=== PATIENT | male | born 1960 | race American Indian/Alaskan Native ===

== ENCOUNTER 2016-04-03 13:41 | Emergency (ER) | payer MEDICARE, OTHER ==
[2016-04-03] MEDS ORDERED: ASPIRIN PO ONE (14:10)
--- NOTE | 2016-04-03 14:17 | Emergency Department Report ---
Chief Complaint: Chest Pain Stated Complaint: SHARP PAIN LT ARM Time Seen by Provider: 04/03/16 14:15 - HPI History of Present Illness: 55 year old male with hx of CABG, CHF, HIV (compliant with meds), presents with left sided chest pain for about a day that is not associated with exertion. states pain comes and goes. denies fever, cough, sob. - Exam Vital Signs: Vital Signs 04/03/16 14:01 Temperature 97.6 F Pulse Rate 72 Respiratory 18 Rate Blood Pressure 124/81 O2 Sat by Pulse 98 Oximetry Physical Exam: patient appears in no distress VSS RRR, lungs CTA. MSE screening note: Focused history and physical exam performed. Due to findings the following was ordered: ED Disposition for MSE Condition: Stable
[2016-04-03 14:51] LABS: Basophils % (Auto) 0.5 % (0.0-1.8); Eosinophils % (Auto) 1.2 % (0.0-4.3); Hematocrit 46.9 % (35.5-45.6); Hemoglobin 16.1 gm/dl (11.8-15.2); Mean Corpuscular HGB Conc 34 % (32-34); Mean Corpuscular Hemoglobin 36 pg (28-32); Mean Corpuscular Volume 106 fl (84-94); Platelet Count 185 K/mm3 (140-440); Red Blood Count 4.42 M/mm3 (3.65-5.03); Red Cell Distribution Width 12.7 % (13.2-15.2); White Blood Count 5.3 K/mm3 (4.5-11.0)
--- NOTE | 2016-04-03 14:57 | XRay Report ---
CHEST 2 VIEWS INDICATION: Chest pain. COMPARISON: 07/01/2015 FINDINGS: PA and lateral chest radiographs demonstrate improved congestive bronchovascular prominence. Cardiomegaly, aortic knob calcifications and post CABG changes again seen. No significant pleural effusions. Unremarkable bones. CONCLUSION: Cardiomegaly and post CABG changes again noted with interval resolution of pulmonary vascular congestion, as described. Please correlate. Thank you for the opportunity to participate in this patient's care.
[2016-04-03 15:01] LABS: INR 0.93 (0.87-1.13); Partial Thromboplastin Time 29.1 Sec. (24.2-36.6)
[2016-04-03 15:17] LABS: Alanine Aminotransferase 22 units/L (7-56); Albumin 3.9 g/dL (3.9-5); Alkaline Phosphatase 41 units/L (35-129); Anion Gap 17 mmol/L; BUN/Creatinine Ratio 16.66; Bilirubin,Total 0.4 mg/dL (0.1-1.2); Blood Urea Nitrogen 25 mg/dL (9-20); Calcium 9.2 mg/dL (8.4-10.2); Carbon Dioxide 26 mmol/L (22-30); Chloride 87.6 mmol/L (98-107); Glucose 84 mg/dL (75-100); Lipase 59 units/L (13-60); Potassium 4.6 mmol/L (3.6-5.0); Sodium 126 mmol/L (137-145); Total Protein 7.8 g/dL (6.3-8.2)
[2016-04-03 20:45] VITALS: BP 100/66
[2016-04-04] MEDS ORDERED: NACL 0.9% 500 ML 500 ML IV ONE (00:27)
--- NOTE | 2016-04-04 00:43 | Emergency Department Report ---
HPI - General Chief Complaint: Chest Pain Time Seen by Provider: 04/04/16 00:25 - HPI HPI: This is a 55-year-old Afro-Tajik male presents to the emergency department from home with complaint of pain starting in the left lateral chest, underneath the armpit, it radiates down the left arm. He denies any shortness of breath. He says it began about 9 AM and stopped shortly afterwards. It reoccurred around 12:[address] to the emergency department. He has a history of HIV, CHF, COPD but is not oxygen dependent, coronary artery disease with AR and had a CABG in 2009. Patient took some aspirin for his symptoms with some resolution. His block cutter is Dr. Storm and he had a negative stress test about one month ago. His primary care doctor is Dr. Phu Gomez. No recent travel or sick contacts at home. He denies tobacco abuse or illicit drug use. ED Past Medical Hx - Past Medical History Hx Hypertension: Yes Hx Heart Attack/AMI: Yes Hx Congestive Heart Failure: Yes Hx COPD: Yes Hx HIV: Yes Additional medical history: Full Blown AIDS, hx of pneumonia x 2 - Surgical History Hx Open Heart Surgery: Yes (triple by-pass 2009) Additional Surgical History: By-pass on both legs - Social History Smoking Status: Never Smoker Substance Use Type: Alcohol - Medications Home Medications: Home Medications Medication Instructions Recorded Confirmed Last Taken Type Atazanavir Sulfate [Reyataz] 200 mg PO DAILY 12/19/12 07/01/15 07/01/15 History Emtricitabin/Tenofovir [TRUVADA 1 tab PO QDAY 12/19/12 07/01/15 07/01/15 History 200-300 mg] Ezetimibe [Zetia] 10 mg PO QDAY 12/19/12 07/01/15 07/01/15 History Rosuvastatin Calcium [Crestor] 40 mg PO DAILY 12/19/12 07/01/15 07/01/15 History Aspirin [Aspirin BABY CHEW TAB] 81 mg PO QDAY #30 tab.chew 02/11/14 07/01/1504/16 Rx Carvedilol [Coreg] 25 mg PO BID #60 tablet 02/11/14 07/01/15 07/01/15 Rx Fosinopril Sodium 10 mg PO DAILY #30 tablet 02/11/14 07/01/15 07/01/15 Rx Furosemide [Lasix TAB] 40 mg PO QDAY #30 tab 02/11/14 07/01/15 07/01/15 Rx ED Review of Systems ROS: Stated complaint: SHARP PAIN LT ARM Other details as noted in HPI Comment: All other systems reviewed and negative Constitutional: denies: chills, fever Eyes: denies: eye pain, eye discharge, vision change ENT: denies: ear pain, throat pain Respiratory: denies: cough, shortness of breath, wheezing Cardiovascular: chest pain. denies: palpitations Gastrointestinal: denies: abdominal pain, nausea, diarrhea Genitourinary: denies: urgency, dysuria Musculoskeletal: denies: back pain, joint swelling Skin: denies: rash, lesions Neurological: denies: headache, weakness, paresthesias Physical Exam - Physical Exam Vital Signs: Vital Signs 04/03/16 04/03/16 14:01 20:44 Temperature 97.6 F 98.1 F Pulse Rate 72 78 Respiratory 18 18 Rate Blood Pressure 124/81 100/66 O2 Sat by Pulse 98 97 Oximetry Physical Exam: GENERAL: The patient is well-developed well-nourished. Patient does not appear in any acute distress. HEENT: Normocephalic. Atraumatic. Extraocular motions are intact. Patient has moist mucous membranes. Pupils equal reactive to light bilaterally. NECK: Supple. Trachea is midline. CHEST/LUNGS: Clear to auscultation. There is no respiratory distress noted. HEART/CARDIOVASCULAR: Regular. There is no tachycardia. There is no gallop rub or murmur. ABDOMEN: Abdomen is soft, nontender. Patient has normal bowel sounds. There is no abdominal distention. SKIN: There is no rash. There is no edema. There is no diaphoresis. NEURO: The patient is awake, alert, and oriented. The patient is cooperative. The patient has no focal neurologic deficits. The patient has normal speech. MUSCULOSKELETAL: There is no tenderness or deformity. There is no limitation range of motion. There is no evidence of acute injury. ED Course Vital Signs 04/03/16 04/03/16 14:01 20:44 Temperature 97.6 F 98.1 F Pulse Rate 72 78 Respiratory 18 18 Rate Blood Pressure 124/81 100/66 O2 Sat by Pulse 98 97 Oximetry ED Medical Decision Making - Lab Data Result diagrams: 04/03/16 14:40 04/03/16 14:40 - EKG Data -: EKG Interpreted by Me EKG shows normal: sinus rhythm (with PVCs and fusion complexes), axis (right axis deviation), intervals, QRS complexes (left bundle branch block), ST-T waves Rate: normal - EKG Data When compared to previous EKG there are: no significant change Interpretation: unchanged when compared t (07/01/15) - Radiology Data Radiology results: image reviewed interpreted by me: Chest x-ray does not show any pneumonia, pleural effusions or pneumothorax. - Medical Decision Making This is a 55-year-old male who presents with some chest pain that really is more of arm pain, starting around the armpit and radiating down the left arm. He had 2 episodes where he was having this discomfort and both have resolved prior to presentation. Patient had a negative stress test 1 month ago with sudden heart cardiology. Patient's EKG is unchanged from previous. His chest x -ray does not show any signs of decompensated heart failure, pneumonia or any acute process. Labs include negative troponins 2. Patient does have some hyponatremia but does have a history of this and is on Lasix. He says that the block cutter is aware of his hyponatremia. Patient was given some IV fluid resuscitation but not too much since he does have a history of CHF. Patient has been reevaluated multiple times over multiple hours. He has been in the emergency department for close to 8 hours and has not had any return of his chest discomfort or arm pain. Patient appears safe for discharge home at this time. He will follow-up with Dr. Storm later today but will return to the emergency department with any return of his chest pain or any acute process. - Differential Diagnosis AR, muscle strain, costochondritis, pneumonia, CHF Critical Care Time: No Critical care attestation.: If time is entered above; I have spent that time in minutes in the direct care of this critically ill patient, excluding procedure time. ED Disposition Clinical Impression: Chest pain, atypical, Hyponatremia Disposition: DISCHARGED TO HOME OR SELFCARE Is pt being admited?: No Does the pt Need Aspirin: No Condition: Stable Instructions: Chest Pain (ED), Hyponatremia (ED) Additional Instructions: Please follow-up with Dr. Phu Gomez, as well as Dr. Storm, over the next few days. Return to the emergency department with any worsening of your symptoms or any acute distress. Referrals: REMIGIO STORM MD [Primary Care Provider] - ELKIN DASILVA MD [Staff Physician] - 3-5 Days Time of Disposition: 01:27
== END 2016-04-04 01:30 | disposition home or self-care (01) ==
LOC: ED 13:41
DX: R07.89 Other chest pain (principal); E87.1 Hypo-osmolality and hyponatremia; I10 Essential (primary) hypertension; I25.2 Old myocardial infarction; I50.9 Heart failure, unspecified; J44.9 Chronic obstructive pulmonary disease, unspecified; J18.9 Pneumonia, unspecified organism; Z79.82 Long term (current) use of aspirin
CPT/HCPCS: 36415; 71020; 80053; 83690; 84484; 85025; 85610; 85730; 93005; 93010; 96360; 99284; J7040

== ENCOUNTER 2016-10-08 11:27 | Inpatient (IN) | payer OTHER ==
[2016-10-08] MEDS ORDERED: TYLENOL PO PRN (12:10)
[2016-10-08] MEDS ORDERED: DULCOLAX PR PRN (12:10)
[2016-10-08] MEDS ORDERED: MILK OF MAGNESIA PO PRN (12:10)
[2016-10-08] MEDS ORDERED: ZOFRAN IV PRN (12:10)
[2016-10-08 15:16] LABS: Hematocrit 43.3 % (35.5-45.6); Hemoglobin 14.7 gm/dl (11.8-15.2); Mean Corpuscular HGB Conc 34 % (32-34); Mean Corpuscular Hemoglobin 35 pg (28-32); Mean Corpuscular Volume 103 fl (84-94); Platelet Count 168 K/mm3 (140-440); Red Blood Count 4.19 M/mm3 (3.65-5.03); Red Cell Distribution Width 14.2 % (13.2-15.2); White Blood Count 4.6 K/mm3 (4.5-11.0)
[2016-10-08 15:27] LABS: INR 0.96 (0.87-1.13); Partial Thromboplastin Time 46.2 Sec. (24.2-36.6)
[2016-10-08 15:34] LABS: Alanine Aminotransferase 21 units/L (7-56); Albumin 3.9 g/dL (3.9-5); Albumin/Globulin Ratio 1.1 %; Alkaline Phosphatase 42 units/L (35-129); Anion Gap 17 mmol/L; Blood Urea Nitrogen 15 mg/dL (9-20); Carbon Dioxide 26 mmol/L (22-30); Chloride 96.1 mmol/L (98-107); Glucose 129 mg/dL (75-100); Potassium 3.3 mmol/L (3.6-5.0); Sodium 136 mmol/L (137-145); Total Protein 7.5 g/dL (6.3-8.2)
[2016-10-08 16:07] LABS: Blastocytes % (Manual) 0 %
[2016-10-08 16:09] LABS: Poikilocytosis Few; Target Cells Few
[2016-10-08 16:10] LABS: Anisocytosis 2+; Macrocytosis Few
[2016-10-08 16:11] LABS: Diff Status Complete
[2016-10-08] MEDS ORDERED: K-DUR PO ONE (16:52)
--- NOTE | 2016-10-08 16:55 | History and Physical Report ---
History of Present Illness Date of examination: 10/08/16 Date of admission: 10/08/16 14:11 Chief complaint: Pt. presents for medical optimization prior to ICD implantation. History of present illness: Pt is a 56 YO male with a past medical history of a dilated ischemic cardiomyopathy ejection fraction of 10-15%, chronic systolic heart failure, HIV disease, hypertension, mitral regurgitation who presents for medical optimization prior to scheduled elective AICD implantation. Past History Past Medical History: CAD, heart failure, hypertension, hyperlipidemia, other ( HIV, cardiomyopathy) Past Surgical History: CABG Social history: full code. denies: smoking, alcohol abuse, prescription drug abuse, IV drug use Family history: no significant family history Medications and Allergies Allergies Allergy/AdvReac Type Severity Reaction Status Date / Time No Known Allergies Allergy Verified 07/01/15 12:07 Home Medications Medication Instructions Recorded Confirmed Last Taken Type Atazanavir Sulfate [Reyataz] 200 mg PO DAILY 12/19/12 10/08/16 1 Year Ago History Emtricitabin/Tenofovir [TRUVADA 1 tab PO QDAY 12/19/12 10/08/16 4 Months Ago History 200-300 mg] Ezetimibe [Zetia] 10 mg PO QDAY 12/19/12 10/08/16 1 Day Ago History Rosuvastatin Calcium [Crestor] 40 mg PO DAILY 12/19/12 10/08/16 1 Day Ago History Aspirin [Aspirin BABY CHEW TAB] 81 mg PO QDAY #30 tab.chew 02/11/14 10/08/16 1 Day Ago Rx Carvedilol [Coreg] 25 mg PO BID #60 tablet 02/11/14 10/08/16 1 Year Ago Rx Fosinopril Sodium 10 mg PO DAILY #30 tablet 02/11/14 10/08/16 2 Months Ago Rx Furosemide [Lasix TAB] 40 mg PO QDAY #30 tab 02/11/14 10/08/16 1 Day Ago Rx Elviteg/Kemi/Emtric/Tenofo Ala 1 tab PO DAILY 10/08/16 10/08/16 1 Day Ago History [Genvoya (Nf)] Zolpidem [Ambien] 10 mg PO QHS 10/08/16 10/08/16 1 Day Ago History HYDROcodone/APAP 5-325 [[place] 1 each PO Q6H PRN #10 tablet 10/10/16 Unknown Rx 5-325 mg TAB] Active Meds: Active Medications Acetaminophen (Tylenol) 650 mg PO Q4H PRN PRN Reason: Pain MILD(1-3)/Fever >100.5/PATIÑO Bisacodyl (Dulcolax) 10 mg PA QDAY PRN PRN Reason: Constipation unrelieved by MOM Magnesium Hydroxide (Milk Of Magnesia) 30 ml PO Q4H PRN PRN Reason: Constipation Ondansetron HCl (Zofran) 4 mg IV Q8H PRN PRN Reason: N/V unrelieved by Reglan Potassium Chloride (K-Dur) 40 meq PO ONCE ONE Stop: 10/08/16 16:53 Review of Systems Constitutional: no fever, no chills Ears, nose, mouth and throat: no nasal congestion, no nasal discharge, no sinus pressure Cardiovascular: dyspnea on exertion, no chest pain, no palpitations Respiratory: no cough, no congestion, no wheezing Gastrointestinal: no abdominal pain, no nausea, no vomiting, no diarrhea Genitourinary Male: no dysuria, no hematuria Musculoskeletal: no neck stiffness, no neck pain, no myalgias Integumentary: no rash, no pruritis Neurological: no parathesias, no numbness, no tingling, no headaches Endocrine: no cold intolerance, no heat intolerance Hematologic/Lymphatic: no easy bruising, no easy bleeding Allergic/Immunologic: no urticaria, no wheezing Physical Examination Last Vital Signs Temp 98.2 F 10/10/16 07:30 Pulse 76 10/10/16 10:00 Resp 18 10/10/16 07:30 BP 106/77 10/10/16 07:30 Pulse Ox 99 10/10/16 07:30 General appearance: no acute distress HEENT: Positive: Normocephaly, Mucus Membranes Moist Neck: Positive: neck supple, trachea midline Cardiac: Positive: Reg Rate and Rhythm, S1/S2 Lungs: Positive: clear to auscultation Neuro: Positive: Grossly Intact Abdomen: Positive: Soft, Active Bowel Sounds. Negative: Tender Skin: Positive: Clear. Negative: Rash Musculoskeletal: Normal Range of Motion Extremities: Present: normal. Absent: edema Results 10/09/16 03:59 10/09/16 03:59 Cardiac Enzymes 10/08/16 Range/Units 15:03 AST 27 (5-40) units/L Coagulation 10/08/16 Range/Units 15:03 PT 13.3 (12.2-14.9) Sec. INR 0.96 (0.87-1.13) APTT 46.2 H (24.2-36.6) Sec. CBC 10/08/16 Range/Units 15:03 WBC 4.6 (4.5-11.0) K/mm3 RBC 4.19 (3.65-5.03) M/mm3 Hgb 14.7 (11.8-15.2) gm/dl Hct 43.3 (35.5-45.6) % Plt Count 168 (140-440) K/mm3 Comprehensive Metabolic Panel 10/08/16 Range/Units 15:03 Sodium 136 L (137-145) mmol/L Potassium 3.3 L (3.6-5.0) mmol/L Chloride 96.1 L (98-107) mmol/L Carbon Dioxide 26 (22-30) mmol/L BUN 15 (9-20) mg/dL Creatinine 1.0 (0.8-1.5) mg/dL Glucose 129 H (75-100) mg/dL Calcium 9.0 (8.4-10.2) mg/dL AST 27 (5-40) units/L ALT 21 (7-56) units/L Alkaline Phosphatase 42 (35-129) units/L Total Protein 7.5 (6.3-8.2) g/dL Albumin 3.9 (3.9-5) g/dL - Imaging and Cardiology Echo: report reviewed EKG: pending, image reviewed Assessment and Plan Assessment: Chronic combined systolic and diastolic heart failure Ischemic dilated cardiomyopathy CAD (coronary artery disease) Hx of CABG HIV disease Hyperlipidemia Hypertension Mitral regurgitation Plan: Continue current management. ICD implantation scheduled for tomorrow am by Dr. Wilson.
[2016-10-08] MEDS: AMBIEN PO PRN ×2 (22:11→23:46)
[2016-10-09 06:15] LABS: Hematocrit 41.4 % (35.5-45.6); Mean Corpuscular HGB Conc 34 % (32-34); Mean Corpuscular Hemoglobin 36 pg (28-32); Mean Corpuscular Volume 105 fl (84-94); Platelet Count 157 K/mm3 (140-440); Red Blood Count 3.93 M/mm3 (3.65-5.03); White Blood Count 4.7 K/mm3 (4.5-11.0)
[2016-10-09 06:24] LABS: INR 0.97 (0.87-1.13)
[2016-10-09 06:26] LABS: Partial Thromboplastin Time 44.5 Sec. (24.2-36.6)
[2016-10-09 06:31] LABS: Anion Gap 16 mmol/L; BUN/Creatinine Ratio 16.66; Blood Urea Nitrogen 15 mg/dL (9-20); Carbon Dioxide 25 mmol/L (22-30); Chloride 97.9 mmol/L (98-107); Glucose 97 mg/dL (75-100); Potassium 3.5 mmol/L (3.6-5.0); Sodium 135 mmol/L (137-145)
--- NOTE | 2016-10-09 07:39 | Admit Criteria Form ---
Admission Criteria Documentation: TELEMETRY CARE Telemetry Admission Guidelines (Place 'X' for any and all applicable criteria): Admission to telemetry [A] may be indicated for ANY ONE of the following(1)(2)(3 )(4)(5): [ ]I. Cardiac disease, including ANY ONE of the following (9)(10)(11)(12)(13 ): [ ]a) Postacute [place] [ ]b) Low-risk patients with ST-segment elevation [place] who have undergone successful percutaneous coronary intervention [ ]c) Unstable angina [ ]d) Suspected [place] (until it is ruled out) [ ]e) Post cardiac surgery (first 48 to 72 hours unless complications occur) [ ]f) Acute arrhythmias (including significant tachycardia or bradycardia) [B] [ ]g) Firing of an implantable cardioverter defibrillator [C] [ ]h) Suspected pacemaker or implantable cardioverter defibrillator malfunction (10) [ ]i) New administration or adjustment of an antiarrhythmic drug [D ] [ ]j) Child admitted for acute congestive heart failure [ ]j) Long QT syndrome [ ]k) Advanced heart block (eg, second-degree Mobitz type II, third- degree heart block) [ ]l) Acute myocarditis or pericarditis [ ]m) Short-term (ambulatory or inpatient) monitoring after a cardiac procedure as indicated by ANY ONE of the following [E]: [ ]i) Electrophysiologic studies [ ]ii) Percutaneous coronary intervention with stent placement [ ]iii) Pacemaker placement with cardiac conduction defect [ ]iv) Implantable cardiac defibrillator placement [ ]II. Drug overdose or poisoning with substance that causes arrhythmias or QT prolongation (eg, phenothiazines, sympathomimetic agents, cyclic antidepressants, digitalis, antiarrhythmic drugs)(15) [X ]III. Short-term (ambulatory or inpatient) monitoring after therapeutic or diagnostic procedure requiring conscious sedation or anesthesia (eg, endoscopy, elective cardioversion) [ ]IV. Acute cerebrovascular even[F](18) [ ]V. Massive blood transfusion (eg, at least 10 units of packed red blood cells in 24 hours) [ ]. Variceal bleeding after endoscopy, sclerotherapy, or IV vasopressin [ ]VII. Uncorrected electrolyte abnormalities associated with an increased risk of dangerous arrhythmia [G]; examples include [ ]a) Hyperkalemia with attributable ECG changes [ ]b) Potassium greater than 6.5 mmol/L (mEq/L) in a patient without history of chronic renal disease [ ]c) Prolonged QT attributed to hypokalemia, hypomagnesemia, or hypocalcemia [ ]VIII.Unexplained syncope or other neurologic event suspected of being due to arrhythmia due to a finding that increases risk; examples include(19)(20)(21): [ ]a) High-risk ECG findings (eg, bifascicular block, bradycardia, abnormal QT interval, ventricular pre- excitation) [ ]b) History of previous syncope due to arrhythmia [ ]c) Abnormal ventricular function (eg, reduced ejection fraction ) [ ]d) Exertional or supine syncope [ ]e) Concerning syncope characteristics (eg, sudden loss of consciousness without prodrome) [ ]f) Family history of sudden [ ]g) Use of arrhythmogenic medication [ ]h) Suspected cardiac ischemia [ ]i) Known channelopathy (eg, long QT syndrome, Brugada syndrome, or catecholaminergic paroxysmal ventricular tachycardia) [ ]j) Known structural heart disease (eg, hypertrophic cardiomyopathy , severe valvular disease) [ ]k) Palpitations preceding syncope The original [employer] content created by [employer] has been revised. The portions of the content which have been revised are identified through the use of italic text or in bold, and [employer] has neither reviewed nor approved the modified material. All other unmodified content is copyright [employer]. Please see references footnoted in the original [employer] edition 2016 Admission Criteria Met: Yes
[2016-10-09] MEDS ORDERED: NACL 0.45% 1000 ML 1,000 ML IV SCH (11:00)
[2016-10-09] MEDS ORDERED: NACL 0.9% 1 ML, VANCOMYCIN VIAL 1,000 MG IR ONE (11:00)
--- NOTE | 2016-10-09 11:47 | Anesthesia Day of Surgery ---
Anesthesia Day of Surgery - Day of Surgery Patient Examined: Yes Patient H&P Reviewed: Yes Patient is NPO: Yes Beta Blockers: Yes
--- NOTE | 2016-10-09 11:47 | Anesthesia Consultation ---
Anesthesia Consult and Med Hx Date of service: 10/09/16 - Airway Anesthetic Teeth Evaluation: Dentures (upper) ROM Head & Neck: Adequate Mental/Hyoid Distance: Adequate Mallampati Class: Class II Intubation Access Assessment: Probably Good - Pre-Operative Health Status ASA Pre-Surgery Classification: ASA3 Proposed Anesthetic Plan: MAC - Pulmonary Hx Smoking: Yes Hx Asthma: No COPD: No Hx Pneumonia: No Hx Sleep Apnea: No - Cardiovascular System Hx Hypertension: Yes Hx Coronary Artery Disease: Yes (CHF, cardiomyopathy, s/p CABG) Hx Heart Attack/AMI: No Hx Angina: No Hx Percutaneous Transluminal Coronary Angioplasty (PTCA): No Hx Cardia Arrhythmia: Yes Hx Pacemaker: No Hx Internal Defibrillator: No Hx Valvular Heart Disease: No Hx Heart Murmur: No Hx Peripheral Vascular Disease: No - Central Nervous System Hx Psychiatric Problems: No - Hematic Hx Anemia: No Hx Sickle Cell Disease: No (HIV disease) - Other Systems Hx Cancer: No - Additional Comments Anesthesia Medical History Comments: HIV disease
[2016-10-09] MEDS ORDERED: DIPRIVAN 10 MG/ML IV ONE ×4 (11:48→11:49)
[2016-10-09] MEDS ORDERED: DILAUDID ONE (11:48)
[2016-10-09] MEDS ORDERED: VERSED ONE (11:48)
[2016-10-09] MEDS ORDERED: XYLOCAINE MPF 2% ONE ×2 (11:49)
[2016-10-09] MEDS ORDERED: NACL 0.9% 500 ML IR ONE (11:54)
[2016-10-09] MEDS ORDERED: MARCAINE 0.5% 60 ML INFILTRATI ONE (11:55)
[2016-10-09] MEDS ORDERED: ANCEF/STERILE WATER 2 GM/20 ML 2 GM/20 ML SYRINGE IV ONE (11:55)
[2016-10-09] MEDS ORDERED: K-DUR PO ONE (13:00)
[2016-10-09] MEDS ORDERED: HEPARIN/NS 5000 UNIT/500ML(CATH LAB) 500 ML IR ONE (13:06)
--- NOTE | 2016-10-09 13:11 | Progress Note ---
Assessment and Plan Assessment: Ischemic dilated CMP CAD, s/p CABG Chronic combined systolic and diastolic heart failure HTN HLP MR / TR NSVT PAD Paroxysmal atrial tachycardia Pulmonary HTN Plan: Proceed with biventricular cardiac defibrillator implantation. The patient has been seen in conjunction with Dr. Wilson who agrees with the assessment and plan of care. Subjective Date of service: 10/09/16 Principal diagnosis: CMP Interval history: Pt resting comfortably, NAD. Awaiting device implantation today. VSS. No cardiac complaints. Objective Last Vital Signs Temp 97.6 F 10/09/16 08:05 Pulse 84 10/09/16 08:05 Resp 18 10/09/16 08:05 BP 109/66 10/09/16 08:05 Pulse Ox 94 10/09/16 08:05 - Physical Examination General: Appears Well HEENT: Positive: PERRL Neck: Positive: neck supple, trachea midline Cardiac: Positive: Reg Rate and Rhythm, S1/S2 Lungs: Positive: Normal Exam, clear to auscultation, Normal Breath Sounds Neuro: Positive: Grossly Intact, Cranial Nerve 2-12 Intact Abdomen: Positive: Unremarkable, Soft, Active Bowel Sounds. Negative: Tender Skin: Positive: Clear. Negative: Rash, Wound Musculoskeletal: No Fluid Collection, No Pain, Normal Range of Motion Extremities: Present: normal. Absent: edema - Labs and Meds Cardiac Enzymes 10/08/16 Range/Units 15:03 AST 27 (5-40) units/L Coagulation 10/08/16 10/09/16 Range/Units 15:03 03:59 PT 13.3 13.4 (12.2-14.9) Sec. INR 0.96 0.97 (0.87-1.13) APTT 46.2 H 44.5 H (24.2-36.6) Sec. CBC 10/08/16 10/09/16 Range/Units 15:03 03:59 WBC 4.6 4.7 (4.5-11.0) K/mm3 RBC 4.19 3.93 (3.65-5.03) M/mm3 Hgb 14.7 14.0 (11.8-15.2) gm/dl Hct 43.3 41.4 (35.5-45.6) % Plt Count 168 157 (140-440) K/mm3 Comprehensive Metabolic Panel 07/10/17 07/11/17 Range/Units 15:03 03:59 Sodium 136 L 135 L (137-145) mmol/L Potassium 3.3 L 3.5 L (3.6-5.0) mmol/L Chloride 96.1 L 97.9 L (98-107) mmol/L Carbon Dioxide 26 25 (22-30) mmol/L BUN 15 15 (9-20) mg/dL Creatinine 1.0 0.9 (0.8-1.5) mg/dL Glucose 129 H 97 (75-100) mg/dL Calcium 9.0 9.0 (8.4-10.2) mg/dL AST 27 (5-40) units/L ALT 21 (7-56) units/L Alkaline Phosphatase 42 (35-129) units/L Total Protein 7.5 (6.3-8.2) g/dL Albumin 3.9 (3.9-5) g/dL - Imaging and Cardiology EKG: image reviewed Echo: report reviewed - Telemetry EKG Rhythm: Sinus Rhythm
[2016-10-09] MEDS: XYLOCAINE 1% 20 mL ONE ×2 (13:20→13:29)
[2016-10-09] MEDS ORDERED: VANCOMYCIN VIAL 1,000 MG in NACL 0.9% 1,000 ML IRRIGATION ONE (15:19)
[2016-10-09] MEDS ORDERED: TYLENOL PO PRN (16:19)
--- NOTE | 2016-10-09 19:34 | XRay Report ---
FINAL REPORT EXAM: XR CHEST 1V AP HISTORY: Pacemaker Postop TECHNIQUE: Single-view chest PRIORS: None. FINDINGS: Sternotomy wires and surgical clips are noted. 3 lead pacing unit is seen in the left chest wall. No pneumothorax is identified. Linear density is noted in the right lung base. The heart is enlarged. No acute osseous abnormality is identified. IMPRESSION: 1. Pacing unit is noted. No adverse features are identified. 2. Cardiomegaly. 3. Probable atelectasis in the right lung base. There are currently no studies available for direct comparison.
[2016-10-09] MEDS: NORCO 5/325 PO PRN (21:04)
[2016-10-09] MEDS: ANCEF/NS 1 GM/50 ML 1 GM/50 ML BAG IV SCH (21:04)
[2016-10-09] MEDS ORDERED: AMBIEN PO SCH (22:00)
[2016-10-09] MEDS: COREG PO SCH (22:12)
[2016-10-10] MEDS: ANCEF/NS 1 GM/50 ML 1 GM/50 ML BAG IV SCH (05:37)
[2016-10-10] MEDS ORDERED: FOSINOPRIL SODIUM 10 MG PO SCH (10:00)
[2016-10-10] MEDS ORDERED: ZETIA PO SCH (10:00)
[2016-10-10] MEDS ORDERED: ZESTRIL PO SCH (10:00)
[2016-10-10] MEDS ORDERED: [UNRECOGNIZED DRUG - OTHER] PO SCH (10:00)
[2016-10-10] MEDS ORDERED: NON-FORMULARY (Atazanavir Sulfate [Reyataz] 200 MG) PO SCH (10:00)
[2016-10-10] MEDS ORDERED: LASIX PO SCH (10:00)
[2016-10-10] MEDS ORDERED: NON-FORMULARY (Emtricitabin/Tenofovir [Truvada 200-300 Mg] 1 TAB) PO SCH (10:00)
[2016-10-10] MEDS ORDERED: NON-FORMULARY (Rosuvastatin Calcium [Crestor] 40 MG) PO SCH (10:00)
[2016-10-10] MEDS ORDERED: BABY ASPIRIN PO SCH (10:00)
[2016-10-10] MEDS: COREG PO SCH (10:46)
[2016-10-10] MEDS: NORCO 5/325 PO PRN (10:47)
[2016-10-10 10:55] VITALS: BP 106/77
--- NOTE | 2016-10-10 11:03 | Progress Note ---
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 Wilson). Currently stable cardiac status. Pt may discharge home from cardiology standpoint. Follow up in our [place] office with Dr. Wilson on 10/17/2016 @ 9:00AM. The patient has been seen in conjunction with Dr. Wallace who agrees with the assessment and plan of care. Subjective Date of service: 10/10/16 Principal diagnosis: CMP Interval history: Pt resting comfortably, NAD. s/p AICD implantation yesterday. Left pectoralis AICD implantation site tegaderm saturated with moderate amount of old blood, no current evidence of bleeding or hematoma. VSS. Device interrogation this AM revealed normal device function. Post-procedure CXR showed NAF, no pneumothorax. Objective Last Vital Signs Temp 98.2 F 10/10/16 07:30 Pulse 76 10/10/16 10:00 Resp 18 10/10/16 07:30 BP 106/77 10/10/16 07:30 Pulse Ox 99 10/10/16 07:30 - Physical Examination General: Appears Well HEENT: Positive: PERRL Neck: Positive: neck supple, trachea midline Cardiac: Positive: Reg Rate and Rhythm, S1/S2 Lungs: Positive: clear to auscultation Neuro: Positive: Grossly Intact, Cranial Nerve 2-12 Intact Abdomen: Positive: Unremarkable, Soft, Active Bowel Sounds. Negative: Tender Skin: Positive: Clear. Negative: Rash, Wound Musculoskeletal: No Fluid Collection, No Pain, Normal Range of Motion Extremities: Present: normal. Absent: edema - Imaging and Cardiology EKG: image reviewed Echo: report reviewed - Telemetry EKG Rhythm: Paced
--- NOTE | 2016-10-10 11:06 | Discharge Summary ---
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 He underwent successful biventricular cardiac defibrillator implantation on 10/09/2016 and remained clinically stable throughout his procedure and recovery. He is cleared for discharge today. Disposition: IL-30 STILL A PATIENT - Discharge Diagnoses (1) Ischemic cardiomyopathy Status: Chronic (2) Automatic implantable cardioverter-defibrillator in situ Status: Acute (3) Chronic systolic heart failure Status: Acute (4) CAD (coronary artery disease) Status: Chronic Qualifiers: Coronary Disease-Associated Artery/Lesion type: C [place] vs. transplanted heart: N Associated angina: A (5) Hx of CABG Status: Chronic (6) HIV disease Status: Chronic Core Measure Documentation - Palliative Care Palliative Care/ Comfort Measures: Not Applicable - Core Measures Any of the following diagnoses?: heart failure - Heart Failure Discharge Requirements JANET/ARB for LVSD if EF <40%: Yes Beta amador at discharge: Yes Exam - Constitutional Vitals: Temp Pulse Resp BP Pulse Ox 98.2 F 76 18 106/77 99 10/10/16 07:30 10/10/16 10:00 10/10/16 07:30 10/10/16 07:30 10/10/16 07:30 General appearance: Present: no acute distress - EENT Eyes: Present: PERRL, EOM intact ENT: hearing intact, clear oral mucosa, dentition normal - Neck Neck: Present: supple, normal ROM - Respiratory Respiratory effort: normal - Cardiovascular Rhythm: regular - Extremities Extremities: no ischemia, pulses intact, pulses symmetrical Peripheral Pulses: within normal limits - Abdominal General gastrointestinal: Present: soft, non-tender - Integumentary Integumentary: Present: clear, warm, dry - Musculoskeletal Musculoskeletal: strength equal bilaterally - Psychiatric Psychiatric: appropriate mood/affect Plan Activity: other (as per discharge instructions) Weight Bearing Status: Full Weight Bearing Diet: low fat, low cholesterol, low salt Wound: keep clean and dry, per your surgeon's advice, other (as per discharge instructions) Durable Medical Equipment Needed Upon Discharge: other (left arm immobilizer) Follow up with: YUDELKA WILSON MD [Staff Physician] - 7 Days ELKIN SPRING MD [Primary Care Provider] - 7 Days (Follow up in our [place] office with Dr. Wilson on 10/17/2016 @ 9:00AM. ) Prescriptions: HYDROcodone/APAP 5-325 [[place] 5-325 mg TAB] 1 each PO Q6H PRN #10 tablet PRN Reason: Pain, Moderate (4-6)
== END 2016-10-10 14:34 | disposition home or self-care (01) | DRG 224 ==
LOC: 4A 11:27 → UNDOADMIN 11:27 → 4A 14:11
PROVIDERS: ADMIT Internal Medicine Cardiovascular Disease; ATTEND Internal Medicine Cardiovascular Disease
PROC: 0JH609Z Insertion of Cardiac Resynchronization Defibrillator Pulse Generator into Chest Subcutaneous Tissue and Fascia, Open Approach (ICD-10-PCS; principal; 2016-10-08)
PROC: 02HK3KZ Insertion of Defibrillator Lead into Right Ventricle, Percutaneous Approach (ICD-10-PCS; 2016-10-08)
PROC: B2161ZZ Fluoroscopy of Right and Left Heart using Low Osmolar Contrast (ICD-10-PCS; 2016-10-08)
PROC: 02HL3KZ Insertion of Defibrillator Lead into Left Ventricle, Percutaneous Approach (ICD-10-PCS; 2016-10-08)
PROC: 02H63KZ Insertion of Defibrillator Lead into Right Atrium, Percutaneous Approach (ICD-10-PCS; 2016-10-08)
DX: I25.5 Ischemic cardiomyopathy (principal); B20 Human immunodeficiency virus [HIV] disease; I47.1 Supraventricular tachycardia; I50.42 Chronic combined systolic (congestive) and diastolic (congestive) heart failure; I11.0 Hypertensive heart disease with heart failure; I25.10 Atherosclerotic heart disease of native coronary artery without angina pectoris; E78.5 Hyperlipidemia, unspecified; I73.9 Peripheral vascular disease, unspecified; I27.2 Other secondary pulmonary hypertension; Z95.1 Presence of aortocoronary bypass graft
CPT/HCPCS: 33225; 33249; 36415; 71010; 80048; 80053; 85007; 85025; 85027; 85610; 85730; 93005; 93010; A9270-GY; C1769; C1882; C1892; C1894; C1895; C1898; C1900; J0690; J1170; J1644; J2250; J2405; J2704; J3370; Q9967

== ENCOUNTER 2016-12-23 02:48 | Emergency (ER) | payer OTHER ==
[2016-12-23 05:13] LABS: Basophils % (Auto) 0.3 % (0.0-1.8); Eosinophils % (Auto) 0.1 % (0.0-4.3); Hemoglobin 16.5 gm/dl (11.8-15.2); Mean Corpuscular HGB Conc 34 % (32-34); Mean Corpuscular Hemoglobin 37 pg (28-32); Mean Corpuscular Volume 109 fl (84-94); Platelet Count 187 K/mm3 (140-440); Red Blood Count 4.48 M/mm3 (3.65-5.03); Red Cell Distribution Width 14.6 % (13.2-15.2); White Blood Count 7.6 K/mm3 (4.5-11.0)
[2016-12-23 05:25] LABS: BUN/Creatinine Ratio 20.62; Calcium 9.4 mg/dL (8.4-10.2); Chloride 88.1 mmol/L (98-107); Potassium 5.2 mmol/L (3.6-5.0)
[2016-12-23 07:28] LABS: Bilirubin,Urine NEG (Negative); Blood,Urine NEG (Negative); Ketones,Urine NEG (Negative); Leukocyte Esterase,Urine NEG (Negative); Mucus,Urine FEW /HPF; Nitrite,Urine NEG (Negative); Urobilinogen,Urine < 2.0 mg/dL (<2.0)
[2016-12-23 08:15] VITALS: BP 98/71
[2016-12-23] MEDS ORDERED: PEPCID PO ONE (08:52)
--- NOTE | 2016-12-23 08:58 | Emergency Department Report ---
HPI - General Chief Complaint: Nausea/Vomiting/Diarrhea Time Seen by Provider: 12/23/16 08:36 - HPI HPI: Room 18 The patient is a 56-year-old male presenting with a chief complaint of anxiety and abdominal discomfort. The patient was discharged from this hospital 2 days ago for CHF. The patient states while in the hospital he developed diarrhea which led to anal irritation. Patient was given a prescription for hydrocodone for this pain. The patient states he took the pain medication and later in the morning he developed nausea and vomiting. Yesterday the patient went to urgent care and was given a prescription for Zofran. The patient states the first Zofran helped with his nausea and vomiting for approximately 5 hours and his nausea returned. Patient states she took a second Zofran which also helped with the nausea and vomiting then he developed abdominal cramping and discomfort which has been persistent. The patient currently gets his pain score of 7/10. The patient also states he feels anxious at times. Patient states his diarrhea has resolved Location: Abdomen, see above Duration: [see above] Quality: Discomfort Severity: 10/08 Modifying factors: [see above] Context: [see above] Mode of transportation: [not driving] ED Past Medical Hx - Past Medical History Previous Medical History?: Yes Hx Hypertension: Yes Hx Congestive Heart Failure: Yes Hx HIV: Yes (CD4 168 12/14/2016) Additional medical history: Full Blown AIDS, hx of pneumonia x 2 - Surgical History Past Surgical History?: Yes Hx Open Heart Surgery: Yes (triple by-pass 2009) Hx Internal Defibrillator: Yes (09/2016) Additional Surgical History: By-pass on both legs - Family History Family history: no significant - Social History Smoking Status: Former Smoker (none since 2004) Substance Use Type: None (denies illicit drug use), Alcohol (rarely) - Medications Home Medications: Home Medications Medication Instructions Recorded Confirmed Last Taken Type Ezetimibe [Zetia] 10 mg PO QDAY 12/19/12 12/13/16 12/12/16 History Rosuvastatin Calcium [Crestor] 40 mg PO DAILY 12/19/12 12/13/16 12/12/16 History Aspirin [Aspirin BABY CHEW TAB] 81 mg PO QDAY #30 tab.chew 02/11/14 12/13/16 Rx Furosemide [Lasix TAB] 40 mg PO QDAY #30 tab 02/11/14 12/13/16 12/12/16 Rx Elviteg/Kemi/Emtric/Tenofo Ala 1 tab PO DAILY 10/08/16 12/13/16 12/12/16 History [Genvoya (Nf)] Zolpidem [Ambien] 10 mg PO QHS 10/08/16 12/13/16 12/12/16 History Potassium Chloride [K-Dur] 20 meq PO QDAY 12/13/16 12/13/16 12/12/16 History Suvorexant [Belsomra] 10 mg PO DAILY 12/13/16 12/13/16 12/12/16 History HYDROcodone/APAP 5-325 [[place] 1 each PO Q6H PRN #10 tablet 12/21/16 Unknown Rx 5-325 mg TAB] Losartan [Cozaar] 25 mg PO QDAY #30 tablet 12/21/16 Unknown Rx Metoprolol Xl [Metoprolol 50 mg PO QDAY #30 tablet 12/21/16 Unknown Rx SUCCINATE ER TAB] Ciprofloxacin HCl [Ciprofloxacin 500 mg PO Q12H #20 tab 12/23/16 Unknown Rx TAB] Dicyclomine [Bentyl] 20 mg PO QID #20 tablet 12/23/16 Unknown Rx ED Review of Systems ROS: Stated complaint: ABDOMINAL PAIN Other details as noted in HPI Comment: All other systems reviewed and negative Constitutional: denies: chills, fever Eyes: denies: eye pain, eye discharge, vision change ENT: denies: ear pain, throat pain Respiratory: denies: cough, shortness of breath, wheezing Cardiovascular: denies: chest pain, palpitations Endocrine: no symptoms reported Gastrointestinal: abdominal pain, nausea, vomiting, diarrhea Genitourinary: denies: urgency, dysuria Musculoskeletal: denies: back pain, joint swelling, arthralgia Skin: denies: rash, lesions Neurological: denies: headache, weakness, paresthesias Psychiatric: denies: anxiety, depression Hematological/Lymphatic: denies: easy bleeding, easy bruising Physical Exam - Physical Exam Vital Signs: Vital Signs 12/23/16 12/23/16 12/23/16 03:48 08:14 08:15 Temperature 97.5 F L 97.5 F L Pulse Rate 44 L 102 H Respiratory 18 16 16 Rate Blood Pressure 101/62 Blood Pressure 98/71 [Left] O2 Sat by Pulse 99 100 100 Oximetry Physical Exam: GENERAL: The patient is well-developed well-nourished male sitting on stretcher not appearing to be in acute distress. [] HEENT: Normocephalic. Atraumatic. Extraocular motions are intact. NECK: Supple. Trachea midline CHEST/LUNGS: Clear to auscultation. There is no respiratory distress noted. HEART/CARDIOVASCULAR: Regular. There is no tachycardia. There is no gallop rub or murmur. ABDOMEN: Abdomen is soft, nontender. Patient has normal bowel sounds. There is no abdominal distention. SKIN: There is no rash. There is no edema. There is no diaphoresis. NEURO: The patient is awake, alert, and oriented. The patient is cooperative. The patient has normal speech MUSCULOSKELETAL: here is no evidence of acute injury. ED Course Vital Signs 12/23/16 12/23/16 12/23/16 03:48 08:14 08:15 Temperature 97.5 F L 97.5 F L Pulse Rate 44 L 102 H Respiratory 18 16 16 Rate Blood Pressure 101/62 Blood Pressure 98/71 [Left] O2 Sat by Pulse 99 100 100 Oximetry - Consultations Consultation #1: 12/23/16 11:30 Surgery paged 12/23/16 11:36 Case discussed with surgeon Dr[address] Issa. Recommends hospitalist admit , make the patient nothing by mouth and initiate Zosyn. Will evaluate Consultation #2: 12/23/16 11:36 Infectious diseases paged ED Medical Decision Making - Lab Data Result diagrams: 12/23/16 04:23 12/23/16 04:23 Laboratory Tests 12/23/16 12/23/16 12/23/16 04:23 04:23 07:08 WBC 7.6 RBC 4.48 Hgb 16.5 H Hct 49.0 H MCV 109 H MCH 37 H MCHC 34 RDW 14.6 Plt Count 187 Lymph % (Auto) 13.0 L Glynn % (Auto) 12.6 H Eos % (Auto) 0.1 Baso % (Auto) 0.3 Lymph # 1.0 L Glynn # 1.0 H Eos # 0.0 Baso # 0.0 Seg Neutrophils % 74.0 H Seg Neutrophils # 5.6 Sodium 128 L D Potassium 5.2 H D Chloride 88.1 L Carbon Dioxide 23 Anion Gap 22 BUN 33 H Creatinine 1.6 H Estimated GFR 55 BUN/Creatinine Ratio 20.62 Glucose 143 H Calcium 9.4 Urine Color Yellow Urine Turbidity Clear Urine pH 5.0 Ur Specific Carver 1.017 Urine Protein 100 mg/dl Urine Glucose (UA) Neg Urine Ketones Neg Urine Blood Neg Urine Nitrite Neg Urine Bilirubin Neg Urine Urobilinogen < 2.0 Ur Leukocyte Esterase Neg Urine WBC (Auto) 2.0 Urine RBC (Auto) 4.0 U Epithel Cells (Auto) < 1.0 Urine Mucus Few Laboratory Tests 12/23/16 12/23/16 12/23/16 04:23 04:23 04:24 WBC 7.6 RBC 4.48 Hgb 16.5 H Hct 49.0 H MCV 109 H MCH 37 H MCHC 34 RDW 14.6 Plt Count 187 Lymph % (Auto) 13.0 L Glynn % (Auto) 12.6 H Eos % (Auto) 0.1 Baso % (Auto) 0.3 Lymph # 1.0 L Glynn # 1.0 H Eos # 0.0 Baso # 0.0 Seg Neutrophils % 74.0 H Seg Neutrophils # 5.6 Sodium 128 L D Potassium 5.2 H D Chloride 88.1 L Carbon Dioxide 23 Anion Gap 22 BUN 33 H Creatinine 1.6 H Estimated GFR 55 BUN/Creatinine Ratio 20.62 Glucose 143 H Calcium 9.4 Total Bilirubin 1.10 Direct Bilirubin 0.4 H Indirect Bilirubin 0.7 AST 91 H ALT 96 H Alkaline Phosphatase 147 H Total Protein 7.9 Albumin 3.6 L Albumin/Globulin Ratio 0.9 Lipase 43 Urine Color Urine Turbidity Urine pH Ur Specific Carver Urine Protein Urine Glucose (UA) Urine Ketones Urine Blood Urine Nitrite Urine Bilirubin Urine Urobilinogen Ur Leukocyte Esterase Urine WBC (Auto) Urine RBC (Auto) U Epithel Cells (Auto) Urine Mucus 12/23/16 07:08 WBC RBC Hgb Hct MCV MCH MCHC RDW Plt Count Lymph % (Auto) Glynn % (Auto) Eos % (Auto) Baso % (Auto) Lymph # Glynn # Eos # Baso # Seg Neutrophils % Seg Neutrophils # Sodium Potassium Chloride Carbon Dioxide Anion Gap BUN Creatinine Estimated GFR BUN/Creatinine Ratio Glucose Calcium Total Bilirubin Direct Bilirubin Indirect Bilirubin AST ALT Alkaline Phosphatase Total Protein Albumin Albumin/Globulin Ratio Lipase Urine Color Yellow Urine Turbidity Clear Urine pH 5.0 Ur Specific Carver 1.017 Urine Protein 100 mg/dl Urine Glucose (UA) Neg Urine Ketones Neg Urine Blood Neg Urine Nitrite Neg Urine Bilirubin Neg Urine Urobilinogen < 2.0 Ur Leukocyte Esterase Neg Urine WBC (Auto) 2.0 Urine RBC (Auto) 4.0 U Epithel Cells (Auto) < 1.0 Urine Mucus Few - Radiology Data Radiology results: report reviewed (CT abdomen and pelvis, right upper quadrant ultrasound), image reviewed (CT abdomen and pelvis, right upper quadrant ultrasound) CT abdomen and pelvis (read by radiologist)- multiple calculi in the gallbladder. Gaseous colon with moderate to large volume of stool in colon. No bowel distention. Small amount of ascitic fluid Right upper quadrant ultrasound (read by radiologist)-multiple calculi in thick walled gallbladder. Probable acute cholecystitis. - Medical Decision Making I discussed with the patient at length his ultrasound and CT scan findings in addition to the lab work. I explained to him my concern for acute cholecystitis and the risk of increased morbidity and/or mortality especially given his immunocompromise state. Patient verbalized understanding but states he has a family member coming into town that he must accommodate. The patient states he will return to the emergency department in the next day or 2 for admission. I explained to him that he could potentially get much sicker shouldn 't leave the hospital AGAINST MEDICAL ADVICE. Patient again verbalized understanding. Patient is alert and oriented 4. Critical care attestation.: If time is entered above; I have spent that time in minutes in the direct care of this critically ill patient, excluding procedure time. ED Disposition Clinical Impression: Abdominal pain, Cholecystitis, acute, Elevated LFTs Disposition: LEFT AGAINST MED ADVICE Is pt being admited?: No Does the pt Need Aspirin: No Condition: Serious Additional Instructions: Return to the emergency department immediately should you develop worsening symptoms, fever, inability to tolerate food or liquid or any other concerns. Prescriptions: Ciprofloxacin HCl [Ciprofloxacin TAB] 500 mg PO Q12H #20 tab Dicyclomine [Bentyl] 20 mg PO QID #20 tablet Referrals: SLOAN ISSA MD [Staff Physician] - GIOVANNI (Dr. Issa is a surgeon. He is follow-up with him immediately for further evaluation of your gallbladder) FORD ARREOLA MD [Staff Physician] - GIOVANNI ELKIN SPRING MD [Staff Physician] - GIOVANNI Time of Disposition: 11:46 (patient leaving AMA)
--- NOTE | 2016-12-23 10:04 | Cat Scan Report ---
CT scan of abdomen and pelvis with IV contrast: History: Diffuse abdominal discomfort. Findings: Mild groundglass lungs bilaterally. No pericardial effusion. Minimal right pleural effusion. Minimal ascites. Normal liver spleen pancreas. Calculi within the gallbladder. No pericholecystic fluid. Normal adrenals kidney parenchyma and bladder. No hydronephrosis. Appendix is faintly visualized. No evidence of appendicitis. Gaseous colon with a moderate to large volume of stool in colon. Impression: Multiple calculi in the gallbladder. Gaseous colon with moderate to large volume of stool in colon. No bowel distention. Small amount of ascitic fluid.
[2016-12-23 10:48] LABS: Albumin 3.6 g/dL (3.9-5); Bilirubin,Direct 0.4 mg/dL (0-0.2)
--- NOTE | 2016-12-23 11:14 | Ultrasound Report ---
Sonogram right upper quadrant: History: Abdominal pain nausea and vomiting. Findings: Cardiac diameter 2 cm. No aneurysm. Normal liver. No intrahepatic duct dilatation. Common bile duct diameter 4.3 mm. Gallbladder wall thickness 5.8 mm with edema of gallbladder wall. Multiple calculi with sludge in the gallbladder. Right kidney 11.9 x 5.1 x 6.2 cm. Cortical thickness 1.3 cm. No hydronephrosis. Pancreas not well visualized. Impression: Multiple calculi in thickwalled gallbladder. Probable acute cholecystitis.
[2016-12-23 11:22] LABS: Albumin/Globulin Ratio 0.9 %; Bilirubin,Indirect 0.7 mg/dL; Bilirubin,Total 1.1 mg/dL (0.1-1.2); Total Protein 7.9 g/dL (6.3-8.2)
[2016-12-23] MEDS ORDERED: ZOSYN/NS 4.5GM/100ML 4.5 GM/100 ML VIAL IV ONE (11:44)
== END 2016-12-23 12:53 | disposition left against medical advice (07) ==
LOC: ED 02:48
DX: K81.0 Acute cholecystitis (principal); R10.9 Unspecified abdominal pain; I10 Essential (primary) hypertension; I50.9 Heart failure, unspecified; Z87.891 Personal history of nicotine dependence; Z95.818 Presence of other cardiac implants and grafts
CPT/HCPCS: 36415; 74176; 76705; 80048; 80074; 81001; 83690; 85025; 96365; 99284; J2543

== ENCOUNTER 2017-03-06 14:15 | Emergency (ER) | payer OTHER ==
--- NOTE | 2017-03-06 15:17 | XRay Report ---
CHEST XRAY, 2 VIEWS: History: Shortness of breath. Findings: There is mild cardiomegaly. Pulmonary vessels are within normal limits. The lungs are clear and fully expanded. No infiltrate, pleural effusion or pneumothorax. Normal thoracic cage. Pacemaker devices unchanged since 12/13/16. IMPRESSION: Cardiomegaly.
[2017-03-06 15:34] LABS: Hematocrit 47.4 % (35.5-45.6); Hemoglobin 15.7 gm/dl (11.8-15.2); Mean Corpuscular HGB Conc 33 % (32-34); Mean Corpuscular Hemoglobin 37 pg (28-32); Platelet Count 162 K/mm3 (140-440); Red Blood Count 4.29 M/mm3 (3.65-5.03); Red Cell Distribution Width 15.7 % (13.2-15.2)
[2017-03-06 15:35] LABS: Mean Corpuscular Volume 110 fl (84-94)
[2017-03-06 15:49] LABS: Calcium 8.6 mg/dL (8.4-10.2); Chloride 95.7 mmol/L (98-107); Potassium 4.1 mmol/L (3.6-5.0)
[2017-03-06] MEDS ORDERED: NACL 0.9% 500 ML 500 ML IV ONE (17:12)
[2017-03-06] MEDS ORDERED: ZOFRAN IV ONE (17:12)
[2017-03-06 17:16] LABS: ISTAT Base Excess -1; ISTAT HCO3 24.4; ISTAT PCO2 41.7 (35-45); ISTAT PH 7.375 (7.35-7.45); ISTAT PO2 87 (80-105); ISTAT SO2 96; ISTAT TCO2 26
--- NOTE | 2017-03-06 17:17 | Emergency Department Report ---
ED General Adult HPI - General Chief complaint: Dyspnea/Respdistress Stated complaint: LORA/COUGH/POSS PNUEMONIA Time Seen by Provider: 03/06/17 17:07 Source: patient Mode of arrival: Stretcher Limitations: No Limitations - History of Present Illness Initial comments: Patient is 56 years old male history of congestive heart failure hypertension and HIV. Presented with generalized weakness and nausea vomiting and diarrhea for the last 7 days. Patient denied fever. He stated that he has been having dry cough runny nose and congestion. No chest pain. - Related Data Home Medications Medication Instructions Recorded Confirmed Last Taken Ezetimibe [Zetia] 10 mg PO QDAY 12/19/12 12/23/16 12/12/16 Rosuvastatin Calcium [Crestor] 40 mg PO DAILY 12/19/12 12/23/16 12/12/16 Elviteg/Kemi/Emtric/Tenofo Ala 1 tab PO DAILY 10/08/16 12/23/16 12/12/16 [Genvoya (Nf)] Zolpidem [Ambien] 10 mg PO QHS 10/08/16 12/23/16 12/12/16 Potassium Chloride [K-Dur] 20 meq PO QDAY 12/13/16 12/23/16 12/12/16 Suvorexant [Belsomra] 10 mg PO DAILY 12/13/16 12/23/16 12/12/16 Previous Rx's Medication Instructions Recorded Last Taken Type Aspirin [Aspirin BABY CHEW TAB] 81 mg PO QDAY #30 tab.chew 02/11/14 12/12/16 Rx Furosemide [Lasix TAB] 40 mg PO QDAY #30 tab 02/11/14 12/12/16 Rx HYDROcodone/APAP 5-325 [[place] 1 each PO Q6H PRN #10 tablet 12/21/16 Unknown Rx 5-325 mg TAB] Losartan [Cozaar] 25 mg PO QDAY #30 tablet 12/21/16 Unknown Rx Metoprolol Xl [Metoprolol 50 mg PO QDAY #30 tablet 12/21/16 Unknown Rx SUCCINATE ER TAB] Ciprofloxacin HCl [Ciprofloxacin 500 mg PO Q12H #20 tab 12/23/16 Unknown Rx TAB] Dicyclomine [Bentyl] 20 mg PO QID #20 tablet 12/23/16 Unknown Rx Allergies Allergy/AdvReac Type Severity Reaction Status Date / Time No Known Allergies Allergy Verified 07/01/15 12:07 ED Review of Systems ROS: Stated complaint: LORA/COUGH/POSS PNUEMONIA Other details as noted in HPI Comment: All other systems reviewed and negative Constitutional: denies: chills, fever ENT: congestion Respiratory: cough. denies: shortness of breath, SOB with exertion Cardiovascular: palpitations. denies: chest pain Gastrointestinal: nausea, vomiting, diarrhea. denies: abdominal pain, constipation, hematemesis, melena, hematochezia Genitourinary: denies: urgency, dysuria, frequency, hematuria Skin: denies: rash, lesions, change in color, change in hair/nails ED Past Medical Hx - Past Medical History Hx Hypertension: Yes Hx Heart Attack/AMI: No Hx Congestive Heart Failure: Yes Hx Deep Vein Thrombosis: No Hx Pulmonary Embolism: No Hx Sickle Cell Disease: No (HIV disease) Hx Asthma: No Hx COPD: No Hx Tuberculosis: No Hx HIV: Yes (CD4 168 12/14/2016) Additional medical history: Full Blown AIDS, hx of pneumonia x 2 - Surgical History Hx Coronary Stent: No Hx Open Heart Surgery: Yes (triple by-pass 2009) Hx Pacemaker: No Hx Internal Defibrillator: Yes (09/2016) Additional Surgical History: By-pass on both legs - Social History Smoking Status: Never Smoker Substance Use Type: Alcohol - Medications Home Medications: Home Medications Medication Instructions Recorded Confirmed Last Taken Type Ezetimibe [Zetia] 10 mg PO QDAY 12/19/12 12/23/16 12/12/16 History Rosuvastatin Calcium [Crestor] 40 mg PO DAILY 12/19/12 12/23/16 12/12/16 History Aspirin [Aspirin BABY CHEW TAB] 81 mg PO QDAY #30 tab.chew 02/11/14 12/23/16 Rx Furosemide [Lasix TAB] 40 mg PO QDAY #30 tab 02/11/14 12/23/16 12/12/16 Rx Elviteg/Kemi/Emtric/Tenofo [place] 1 tab PO DAILY 10/08/16 12/23/16 12/12/16 History [Genvoya (Nf)] Zolpidem [Ambien] 10 mg PO QHS 10/08/16 12/23/16 12/12/16 History Potassium Chloride [K-Dur] 20 meq PO QDAY 12/13/16 12/23/16 12/12/16 History Suvorexant [Belsomra] 10 mg PO DAILY 12/13/16 12/23/16 12/12/16 History HYDROcodone/APAP 5-325 [[place] 1 each PO Q6H PRN #10 tablet 12/21/16 12/23/16 Unknown Rx 5-325 mg TAB] Losartan [Cozaar] 25 mg PO QDAY #30 tablet 12/21/16 12/23/16 Unknown Rx Metoprolol Xl [Metoprolol 50 mg PO QDAY #30 tablet 12/21/16 12/23/16 Unknown Rx SUCCINATE ER TAB] Ciprofloxacin HCl [Ciprofloxacin 500 mg PO Q12H #20 tab 12/23/16 Unknown Rx TAB] Dicyclomine [Bentyl] 20 mg PO QID #20 tablet 12/23/16 Unknown Rx ED Physical Exam - General Limitations: No Limitations General appearance: alert, in no apparent distress - Eye Eye exam: Present: normal appearance, PERRL - ENT ENT exam: Present: mucous membranes dry - Neck Neck exam: Present: normal inspection, full ROM. Absent: tenderness, meningismus, lymphadenopathy - Respiratory Respiratory exam: Present: normal lung sounds bilaterally. Absent: respiratory distress, wheezes, rales, rhonchi, stridor, chest wall tenderness, accessory muscle use, decreased breath sounds, prolonged expiratory - Cardiovascular Cardiovascular Exam: Present: tachycardia - GI/Abdominal GI/Abdominal exam: Present: soft, normal bowel sounds. Absent: distended, tenderness, guarding, rebound, rigid, mass, bruit, pulsatile mass, hernia - Extremities Exam Extremities exam: Present: normal inspection, full ROM, normal capillary refill. Absent: pedal edema, calf tenderness - Back Exam Back exam: Present: normal inspection. Absent: CVA tenderness (R), CVA tenderness (L), muscle spasm, paraspinal tenderness, vertebral tenderness - Neurological Exam Neurological exam: Present: alert, oriented X3, CN II-XII intact, normal gait. Absent: abnormal gait - Skin Skin exam: Present: warm, dry, intact. Absent: cyanosis ED Course Vital Signs 03/06/17 03/06/17 14:25 17:19 Temperature 97.4 F L Pulse Rate 106 H Respiratory 16 16 Rate Blood Pressure 143/94 O2 Sat by Pulse 93 100 Oximetry - Reevaluation(s) Reevaluation #1: 03/06/17 20:26 She stated that he is feeling much better, no nausea no vomiting. ED Medical Decision Making - Lab Data Result diagrams: 03/06/17 15:16 03/06/17 15:16 Critical care attestation.: If time is entered above; I have spent that time in minutes in the direct care of this critically ill patient, excluding procedure time. ED Disposition Clinical Impression: Shortness of breath, Vomiting, Dehydration Disposition: DC-01 TO HOME OR SELFCARE Is pt being admited?: No Condition: Stable Instructions: Gastroenteritis (ED) Additional Instructions: Follow-up with her primary care physician in the next 2-3 days. If symptoms get worse he needs to return back to the ER. Referrals: PRIMARY CARE, [Primary Care Provider] - 3-5 Days
[2017-03-06 17:43] LABS: Anisocytosis 1+; Basophils % (Manual) 0 % (0.0-1.8); Blastocytes % (Manual) 0 %; Diff Status Complete; Eosinophils % (Manual) 0 % (0.0-4.3)
[2017-03-06 21:18] VITALS: BP 95/67
== END 2017-03-06 21:18 | disposition home or self-care (01) ==
LOC: ED 14:15
DX: R19.7 Diarrhea, unspecified (principal); E86.0 Dehydration; R11.2 Nausea with vomiting, unspecified; R06.02 Shortness of breath; I10 Essential (primary) hypertension
CPT/HCPCS: 36415; 71020; 80048; 82803; 83880; 84484; 85007; 85025; 87040; 93005; 93010; 96374; 99284; J2405; J7040

== ENCOUNTER 2017-07-15 15:31 | Emergency (ER) | payer OTHER ==
[2017-07-15 17:05] LABS: Basophils % (Auto) 0.3 % (0.0-1.8); Eosinophils # (Auto) 0.1 K/mm3 (0.0-0.4); Eosinophils % (Auto) 0.7 % (0.0-4.3); Hematocrit 40.4 % (35.5-45.6); Hemoglobin 13.8 gm/dl (11.8-15.2); Lymphocytes # (Auto) 0.7 K/mm3 (1.2-5.4); Lymphocytes % (Auto) 7.8 % (13.4-35.0); Mean Corpuscular HGB Conc 34 % (32-34); Mean Corpuscular Hemoglobin 37 pg (28-32); Mean Corpuscular Volume 108 fl (84-94); Monocytes % (Auto) 11.2 % (0.0-7.3); Platelet Count 154 K/mm3 (140-440); Red Blood Count 3.75 M/mm3 (3.65-5.03); Red Cell Distribution Width 16.4 % (13.2-15.2)
--- NOTE | 2017-07-15 17:11 | Cat Scan Report ---
FINAL REPORT EXAM: CT CERVICAL SPINE WO CON HISTORY: syncope, fall TECHNIQUE: CT of the cervical spine was performed without intravenous contrast. Reconstructions were included in the coronal and sagittal planes. PRIORS: None. FINDINGS: No cervical spine fracture or subluxation. The prevertebral soft tissues are normal. Multilevel degenerative changes of the cervical spine are seen with multilevel neural foraminal narrowing. No severe spinal stenosis. Atherosclerotic calculi are seen within the carotid and vertebral arteries. IMPRESSION: 1. No acute cervical spine abnormality. 2. Atherosclerotic calcifications within the vertebral and carotid arteries. 3. Multilevel degenerative changes of the cervical spine with multilevel neural foraminal narrowing. No severe spinal canal stenosis.
[2017-07-15] MEDS ORDERED: SUBLIMAZE IV ONE (17:12)
[2017-07-15] MEDS ORDERED: BOOSTRIX IM ONE (17:14)
--- NOTE | 2017-07-15 17:17 | Cat Scan Report ---
FINAL REPORT EXAM: CT HEAD/BRAIN WO CON HISTORY: syncope, fall TECHNIQUE: CT of the head was performed without intravenous contrast. PRIORS: None. FINDINGS: The ventricles are normal in shape and position. The ventricles are nondilated. There is scattered high attenuation within the right frontal sulci. No mass effect or midline shift. No intracranial mass. No evidence of acute ischemic infarct. The basilar cisterns are patent. The paranasal sinuses are clear. There is right frontal extracranial soft tissue swelling. The calvarium is intact. The orbits are intact. The mastoid air cells are clear. IMPRESSION: 1. Findings concerning for a small amount of right frontal subarachnoid hemorrhage. There may also be a small right subdural hematoma. 2. Right frontal extracranial soft tissue swelling. Findings were discussed with Dr. Andrade at 2:08 p.m. [facility] on 07/15/2017.
--- NOTE | 2017-07-15 17:18 | Cat Scan Report ---
FINAL REPORT EXAM: CT FACIAL BONES WO CON HISTORY: syncope, fall TECHNIQUE: CT of the face was performed without intravenous contrast. Reconstructions were included in the coronal and sagittal planes. PRIORS: None. FINDINGS: No facial bone fracture. The nasal bone is intact. Small amount of sulcal subarachnoid hemorrhage in the right frontal region is again seen. Possible small right subdural hematoma is again seen. The paranasal sinuses are clear. There is right frontal extracranial soft tissue swelling. The orbits are intact. The mastoid air cells are clear. IMPRESSION: 1. No acute facial bone fracture. 2. Sulcal subarachnoid hemorrhage in the right frontal region with probable small right frontal subdural hematoma. 3. Right frontal extracranial soft tissue swelling. Findings were discussed with Dr. Andrade at 2:08 p.m. [facility] on 07/15/2017.
[2017-07-15 17:26] LABS: BUN/Creatinine Ratio 15; Blood Urea Nitrogen 16 mg/dL (9-20); Calcium 8.9 mg/dL (8.4-10.2); Hemolysis Index 8
[2017-07-15 17:36] LABS: INR 2.95 (0.87-1.13)
--- NOTE | 2017-07-15 18:07 | Emergency Department Report ---
ED General Adult HPI - General Chief complaint: Syncope Stated complaint: SYNCOPE Time Seen by Provider: 07/15/17 17:05 Source: patient, EMS (ems notes not available at time of chart dictation), RN notes reviewed, old records reviewed Mode of arrival: Stretcher Limitations: No Limitations - History of Present Illness Initial comments: This is a 56-year-old male who is previously known to this provider. Past medical history includes congestive heart failure, heart disease, ejection fraction 10-15% with ICD pacemaker, HIV status, nonsustained ventricular tachycardia He presents to the ER with a complaint of unprovoked syncope. He reports that he got out of the car and then passed out. Prior to passing out he was not having headache, neck pain, chest pain, abdominal pain or shortness of breath. He takes anticoagulation, Xarelto; he reports compliance with his medication, and reports that he last took it last night. There are no DVT or pulmonary embolus risk factors, there is no hematemesis there is no bright red blood per rectum. Currently he has no midline neck pain, and there is no weakness, numbness or unsteady gait or ataxia. -: Sudden Location: head, face Severity scale (0 -10): 8 Consistency: now resolved Improves with: none Worsens with: none Associated Symptoms: headaches, rash, syncope. denies: chest pain, cough, diaphoresis, fever/chills, loss of appetite, malaise, nausea/vomiting, seizure, shortness of breath, weakness - Related Data Home Medications Medication Instructions Recorded Confirmed Last Taken Ezetimibe [Zetia] 10 mg PO QDAY 12/19/12 12/23/16 12/12/16 Rosuvastatin Calcium [Crestor] 40 mg PO DAILY 12/19/12 12/23/16 12/12/16 Elviteg/Kemi/Emtric/Tenofo Ala 1 tab PO DAILY 10/08/16 12/23/16 12/12/16 [Genvoya (Nf)] Zolpidem [Ambien] 10 mg PO QHS 10/08/16 12/23/16 12/12/16 Potassium Chloride [K-Dur] 20 meq PO QDAY 12/13/16 12/23/16 12/12/16 Suvorexant [Belsomra] 10 mg PO DAILY 12/13/16 12/23/1612/12/17 Previous Rx's Medication Instructions Recorded Last Taken Type Aspirin [Aspirin BABY CHEW TAB] 81 mg PO QDAY #30 tab.chew 02/11/14 12/12/16 Rx Furosemide [Lasix TAB] 40 mg PO QDAY #30 tab 02/11/14 12/12/16 Rx HYDROcodone/APAP 5-325 [Moose 1 each PO Q6H PRN #10 tablet 12/21/16 Unknown Rx 5-325 mg TAB] Losartan [Cozaar] 25 mg PO QDAY #30 tablet 12/21/16 Unknown Rx Metoprolol Xl [Metoprolol 50 mg PO QDAY #30 tablet 12/21/16 Unknown Rx SUCCINATE ER TAB] Ciprofloxacin HCl [Ciprofloxacin 500 mg PO Q12H #20 tab 12/23/16 Unknown Rx TAB] Dicyclomine [Bentyl] 20 mg PO QID #20 tablet 12/23/16 Unknown Rx Ondansetron [Zofran Odt] 4 mg PO Q8HR PRN #14 tab.rapdis 03/06/17 Unknown Rx Allergies Allergy/AdvReac Type Severity Reaction Status Date / Time No Known Allergies Allergy Verified 07/01/15 12:07 ED Review of Systems ROS: Stated complaint: SYNCOPE Other details as noted in HPI Comment: All other systems reviewed and negative ED Past Medical Hx - Past Medical History Hx Hypertension: Yes Hx Heart Attack/AMI: No Hx Congestive Heart Failure: Yes Hx Deep Vein Thrombosis: Yes Hx Pulmonary Embolism: No Hx Sickle Cell Disease: No Hx Asthma: No Hx COPD: No Hx Tuberculosis: No Hx HIV: Yes (CD4 168 12/14/2016) Additional medical history: Full Blown AIDS, hx of pneumonia x 2, Afib - Surgical History Hx Coronary Stent: No Hx Open Heart Surgery: Yes (triple bypass 2009) Hx Pacemaker: No Hx Internal Defibrillator: Yes (09/2016) Additional Surgical History: By-pass on both legs - Social History Smoking Status: Former Smoker Substance Use Type: Alcohol - Medications Home Medications: Home Medications Medication Instructions Recorded Confirmed Last Taken Type Ezetimibe [Zetia] 10 mg PO QDAY 12/19/12 12/23/16 12/12/16 History Rosuvastatin Calcium [Crestor] 40 mg PO DAILY 12/19/12 12/23/16 12/12/16 History Aspirin [Aspirin BABY CHEW TAB] 81 mg PO QDAY #30 tab.chew 02/11/14 12/23/16 Rx Furosemide [Lasix TAB] 40 mg PO QDAY #30 tab 02/11/14 12/23/16 12/12/16 Rx Elviteg/Kemi/Emtric/Tenofo Ala 1 tab PO DAILY 10/08/16 12/23/16 12/12/16 History [Genvoya (Nf)] Zolpidem [Ambien] 10 mg PO QHS 10/08/16 12/23/16 12/12/16 History Potassium Chloride [K-Dur] 20 meq PO QDAY 12/13/16 12/23/16 12/12/16 History Suvorexant [Belsomra] 10 mg PO DAILY 12/13/16 12/23/16 12/12/16 History HYDROcodone/APAP 5-325 [Moose 1 each PO Q6H PRN #10 tablet 12/21/16 12/23/16 Unknown Rx 5-325 mg TAB] Losartan [Cozaar] 25 mg PO QDAY #30 tablet 12/21/16 12/23/16 Unknown Rx Metoprolol Xl [Metoprolol 50 mg PO QDAY #30 tablet 12/21/16 12/23/16 Unknown Rx SUCCINATE ER TAB] Ciprofloxacin HCl [Ciprofloxacin 500 mg PO Q12H #20 tab 12/23/16 Unknown Rx TAB] Dicyclomine [Bentyl] 20 mg PO QID #20 tablet 12/23/16 Unknown Rx Ondansetron [Zofran Odt] 4 mg PO Q8HR PRN #14 tab.rapdis 03/06/17 Unknown Rx ED Physical Exam - General Limitations: No Limitations General appearance: alert, in no apparent distress - Head Head exam: Present: other (patient has superficial scalp swelling. There is no laceration.) - Eye Eye exam: Present: normal appearance, PERRL, EOMI, other (visual acuity intact to finger counting, color perception, reading at a close distance). Absent: nystagmus - ENT ENT exam: Present: normal exam, normal orophraynx, mucous membranes moist, normal external ear exam - Neck Neck exam: Present: normal inspection, full ROM. Absent: tenderness, meningismus - Respiratory Respiratory exam: Present: normal lung sounds bilaterally. Absent: respiratory distress - Cardiovascular Cardiovascular Exam: Present: regular rate, normal heart sounds. Absent: systolic murmur, diastolic murmur, rubs, gallop - GI/Abdominal GI/Abdominal exam: Present: soft, normal bowel sounds. Absent: distended, tenderness, guarding, rebound, rigid, pulsatile mass - Rectal Rectal exam: Present: deferred - Extremities Exam Extremities exam: Present: normal inspection, full ROM, normal capillary refill. Absent: pedal edema, joint swelling, calf tenderness - Back Exam Back exam: Present: normal inspection, full ROM. Absent: tenderness, CVA tenderness (R), paraspinal tenderness, vertebral tenderness - Neurological Exam Neurological exam: Present: alert, oriented X3, CN II-XII intact, other ( Extraocular movements intact. Tongue midline. No facial droop. Facial sensation intact to light touch in the V1, V2, V3 distribution bilaterally. 5 and 5 strength in 4 extremities.. Sensation is intact to light touch in 4 extremities.). Absent: motor sensory deficit - Psychiatric Psychiatric exam: Present: normal affect, normal mood - Skin Skin exam: Present: abrasion, ecchymosis. Absent: rash ED Course Vital Signs 07/15/17 07/15/17 07/15/17 15:53 16:00 16:15 Temperature 97.8 F Pulse Rate 70 70 70 Respiratory 13 18 30 H Rate Blood Pressure 115/80 115/80 121/82 O2 Sat by Pulse 97 98 Oximetry 07/15/17 07/15/17 17:18 17:20 Temperature Pulse Rate 70 Respiratory 18 18 Rate Blood Pressure 121/82 O2 Sat by Pulse 98 Oximetry ED Medical Decision Making - Lab Data Result diagrams: 07/15/17 16:51 07/15/17 16:51 Vital Signs 07/15/17 07/15/17 07/15/17 15:53 16:00 16:15 Temperature 97.8 F Pulse Rate 70 70 70 Respiratory 13 18 30 H Rate Blood Pressure 115/80 115/80 121/82 O2 Sat by Pulse 97 98 Oximetry 07/15/17 07/15/17 17:18 17:20 Temperature Pulse Rate 70 Respiratory 18 18 Rate Blood Pressure 121/82 O2 Sat by Pulse 98 Oximetry Lab Results 07/15/17 07/15/17 07/15/17 Range/Units 16:51 16:51 16:51 WBC 9.1 (4.5-11.0) K/mm3 RBC 3.75 (3.65-5.03) M/mm3 Hgb 13.8 (11.8-15.2) gm/dl Hct 40.4 (35.5-45.6) % MCV 108 H (84-94) fl MCH 37 H (28-32) pg MCHC 34 (32-34) % RDW 16.4 H (13.2-15.2) % Plt Count 154 (140-440) K/mm3 Lymph % (Auto) 7.8 L (13.4-35.0) % Meeker % (Auto) 11.2 H (0.0-7.3) % Eos % (Auto) 0.7 (0.0-4.3) % Baso % (Auto) 0.3 (0.0-1.8) % Lymph # 0.7 L (1.2-5.4) K/mm3 Meeker # 1.0 H (0.0-0.8) K/mm3 Eos # 0.1 (0.0-0.4) K/mm3 Baso # 0.0 (0.0-0.1) K/mm3 Seg Neutrophils % 80.0 H (40.0-70.0) % Seg Neutrophils # 7.3 (1.8-7.7) K/mm3 PT 32.8 H (12.2-14.9) Sec. INR 2.95 H (0.87-1.13) APTT 49.0 H (24.2-36.6) Sec. Sodium 136 L (137-145) mmol/L Potassium 3.5 L (3.6-5.0) mmol/L Chloride 94.4 L (98-107) mmol/L Carbon Dioxide 30 (22-30) mmol/L Anion Gap 15 mmol/L BUN 16 (9-20) mg/dL Creatinine 1.1 (0.8-1.5) mg/dL Estimated GFR > 60 ml/min BUN/Creatinine Ratio 15 % Glucose 117 H (75-100) mg/dL Calcium 8.9 (8.4-10.2) mg/dL Magnesium (1.7-2.3) mg/dL Troponin T 0.019 (0.00-0.029) ng/mL 04/16/18 Range/Units 16:51 WBC (4.5-11.0) K/mm3 RBC (3.65-5.03) M/mm3 Hgb (11.8-15.2) gm/dl Hct (35.5-45.6) % MCV (84-94) fl MCH (28-32) pg MCHC (32-34) % RDW (13.2-15.2) % Plt Count (140-440) K/mm3 Lymph % (Auto) (13.4-35.0) % Meeker % (Auto) (0.0-7.3) % Eos % (Auto) (0.0-4.3) % Baso % (Auto) (0.0-1.8) % Lymph # (1.2-5.4) K/mm3 Meeker # (0.0-0.8) K/mm3 Eos # (0.0-0.4) K/mm3 Baso # (0.0-0.1) K/mm3 Seg Neutrophils % (40.0-70.0) % Seg Neutrophils # (1.8-7.7) K/mm3 PT (12.2-14.9) Sec. INR (0.87-1.13) APTT (24.2-36.6) Sec. Sodium (137-145) mmol/L Potassium (3.6-5.0) mmol/L Chloride (98-107) mmol/L Carbon Dioxide (22-30) mmol/L Anion Gap mmol/L BUN (9-20) mg/dL Creatinine (0.8-1.5) mg/dL Estimated GFR ml/min BUN/Creatinine Ratio % Glucose (75-100) mg/dL Calcium (8.4-10.2) mg/dL Magnesium 2.10 (1.7-2.3) mg/dL Troponin T (0.00-0.029) ng/mL - EKG Data When compared to previous EKG there are: no significant change 07/15/17 18:19 Biventricular paced rhythm good capture, left axis deviation, abnormal EKG, not having chest pain, not consistent with a STEMI, when compared to old EKG, nonspecific changes have taken place. - Radiology Data Radiology results: report reviewed, image reviewed Print Report Referring Physician: PAXTON ANDRADE Patient Name: TEMITOPE DAVIS Date of : 1960 Sex: Male Report Date: 2017-07-15 Report Status: Finalized Findings [facility] [address] [place] [address] Cat Scan Report Signed Patient: TEMITOPE DAVIS MR#: [id number] : 1960 Acct:[id number] Age/Sex: 56 / M ADM Date: 07/15/17 Loc: ED Attending Dr: Ordering Physician: PAXTON ANDRADE MD Date of Service: 07/15/17 Procedure(s): CT facial bones wo con Accession Number(s): [id number] cc: PAXTON ANDRADE MD FINAL REPORT EXAM: CT FACIAL BONES WO CON HISTORY: syncope, fall TECHNIQUE: CT of the face was performed without intravenous contrast. Reconstructions were included in the coronal and sagittal planes. PRIORS: None. FINDINGS: No facial bone fracture. The nasal bone is intact. Small amount of sulcal subarachnoid hemorrhage in the right frontal region is again seen. Possible small right subdural hematoma is again seen. The paranasal sinuses are clear. There is right frontal extracranial soft tissue swelling. The orbits are intact. The mastoid air cells are clear. IMPRESSION: 1. No acute facial bone fracture. 2. Sulcal subarachnoid hemorrhage in the right frontal region with probable small right frontal subdural hematoma. 3. Right frontal extracranial soft tissue swelling. Findings were discussed with Dr. Andrade at 2:08 p.m. PST on 07/15/2017. Transcribed By: MG Dictated By: HU KENNEY MD Electronically Authenticated By: HU KENNEY MD Signed Date/Time: 07/15/171711 DD/ 11 - Medical Decision Making Differential diagnosis, including but not limited to: Intracranial injury, cervical spine injury, facial fracture, arrhythmia, electrolyte derangement, structural cardiac disease Assessment and plan: 56-year-old male with syncope with no preceding symptoms, numerous cardiovascular risk factors, clinically sober, with superficial facial injuries, and noncontrast CT scan of the brain demonstrating hemorrhage. He has a GCS of 15. He is protecting his airway.Patient is clinically sober at this time. The cervical spine is cleared through nexus and burmese c spine rule Laboratory studies reviewed and are unremarkable. Patient has a supratherapeutic INR, with no pulmonary embolus or DVT risk factors and is low risk by well's criteria. Vitamin K antagonist and prothrombin complex concentrate do not work on his form of anticoagulation. He last took his anticoagulation last night. This hospital does not have neurosurgery, or trauma surgery available for consultation, therefore, he will be transferred to [facility], [place], operated by [facility], where he has been accepted graciously by the trauma physician, Dr. Thomas. Critical care attestation.: If time is entered above; I have spent that time in minutes in the direct care of this critically ill patient, excluding procedure time. ED Disposition Clinical Impression: Syncope, Traumatic hemorrhage, Ischemic cardiomyopathy Disposition: DC/TX-70 ANOTHER TYPE HLTHCARE Is pt being admited?: No Does the pt Need Aspirin: No Condition: Good Instructions: Syncope (ED)
[2017-07-15 18:12] LABS: Bilirubin,Urine NEG (Negative); Blood,Urine NEG (Negative); Color,Urine Yellow (Yellow); Hyaline Casts,Urine 1 /LPF; Urobilinogen,Urine < 2.0 mg/dL (<2.0); WBC,Urine < 1.0 /HPF (0.0-6.0)
[2017-07-15 20:23] VITALS: BP 112/82
== END 2017-07-15 20:25 | disposition other institution (70) ==
LOC: ED 15:31
DX: R55 Syncope and collapse (principal); I25.5 Ischemic cardiomyopathy; T14.90XA Injury, unspecified, initial encounter; X58.XXXA Exposure to other specified factors, initial encounter; Y93.89 Activity, other specified; Y92.89 Other specified places as the place of occurrence of the external cause; Y99.8 Other external cause status
CPT/HCPCS: 36415; 70450; 70486; 72125; 80048; 81001; 83735; 84484; 85025; 85610; 85730; 87086; 90471; 90715; 93005; 93010; 96374; 99285; J3010